=== PATIENT | female | born 1965 | race Caucasian/White ===

== ENCOUNTER 2016-07-26 05:00 | Emergency (ER) | payer OTHER ==
[~2016-07-26] VITALS: Ht 165.1 cm; Wt 65.8 kg
[2016-07-26] MEDS ORDERED: HYDROCODONE/APAP 5/325MG TABLET. PO ONE (06:00)
--- NOTE | 2016-07-26 06:09 | PHYS DOC ---
Past Medical History Past Medical History: Diabetes-Type II Past Surgical History: No Surgical History Alcohol Use: None Drug Use: None Adult General Chief Complaint Chief Complaint: WRIST PAIN HPI HPI 51-year-old female presenting to the emergency department today after falling while trying to pull a table and injuring her right wrist. She has payment sharp severe not radiating and without leaving factors. She denies any numbness weakness or tingling of the hand. She also reports pain in her elbow and shoulder. Review of Systems Review of Systems Constitutional: Denies fever or chills Eyes: Denies change in visual acuity, redness, or eye pain [] HENT: Denies nasal congestion or sore throat [] Respiratory: Denies cough or shortness of breath [] Cardiovascular: No additional information not addressed in HPI GI: Denies abdominal pain, nausea, vomiting, bloody stools or diarrhea [] : Denies dysuria or hematuria Musculoskeletal: positive for wrist pain. Integument: Denies rash or skin lesions [] Neurologic: Denies headache, focal weakness or sensory changes Endocrine: Denies polyuria or polydipsia [] Current Medications Current Medications Current Medications Medications (Trade) Dose Ordered Sig/Yoly Start Time Stop Time Status Last Admin Dose Admin Acetaminophen/ Hydrocodone Bitart (Lortab 5/325) 2 tab 1X ONCE 07/26/16 06:00 07/26/16 06:01 DC 07/26/16 06:21 2 TAB Allergies Allergies Allergies Coded Allergies Type Severity Reaction Last Updated Verified No Known Drug Allergies 07/26/16 No Physical Exam Physical Exam Constitutional: Well developed, well nourished, no acute distress, non-toxic appearance. HENT: Normocephalic, atraumatic, bilateral external ears normal, oropharynx moist, no oral exudates, nose normal. [] Eyes: PERRLA, EOMI, conjunctiva normal, no discharge. Neck: Normal range of motion, no tenderness, supple, no stridor. [] Cardiovascular:Heart rate regular rhythm, no murmur Lungs & Thorax: Bilateral breath sounds clear to auscultation [] Abdomen: Bowel sounds normal, soft, no tenderness, no masses, no pulsatile masses. [] Skin: Warm, dry, no erythema, no rash. [] Back: No tenderness, no CVA tenderness. [] Extremities: the patient's right upper extremity is warm and well perfused with a palpable pulse. Normal motor and sensory function of the hand. There is mild swelling of the wrist with tenderness to palpation of the radial head. two second cap Refill. Otherwise mild pain with passive range of motion of the elbow and shoulder. Other extremities show no evidence of injury. Neurologic: Alert and oriented X 3, normal motor function, normal sensory function, no focal deficits noted. Psychologic: Affect normal, judgement normal, mood normal. [] Current Patient Data Vital Signs Vital Signs Date Time Temp Pulse Resp B/P Pulse Ox O2 Delivery O2 Flow Rate FiO2 07/26/16 06:44 95 12 142/69 97 Room Air 07/26/16 05:11 98.1 98.1 EKG EKG [] Radiology/Procedures Radiology/Procedures [] Course & Med Decision Making Course & Med Decision Making Pertinent Labs and Imaging studies reviewed. (See chart for details) 51-year-old female presented to the emergency department today with right wrist pain after a fall. X-rays were noted to have a nondisplaced distal radius fracture. I discussed case with Dr. Ricardo BARRAGAN. The patient was placed in a sugar tong splint and provided pain medication to help with orthopedic surgery over the next 4-5 days. x-rays of the shoulder and elbow or otherwise unremarkable. Dragon Disclaimer Dragon Disclaimer This electronic medical record was generated, in whole or in part, using a voice recognition dictation system. Departure Departure Impression: Primary Impression: Right radial fracture Disposition: 01 HOME, SELF-CARE Condition: STABLE Referrals: NO PCP (PCP) AZALIA BLAS MD Patient Instructions: Radius Fracture with [facility] Additional Instructions: Thank you for allowing us to participate in your care today. Followup with your primary care physician in 3 days if your symptoms do not improve. If you do not have a primary care provider you can ask for a list of our primary care providers. Return to the emergency department you have any new or concerning findings. This should be evaluated by the primary care physician and any necessary consulting services for continued management within a few days after discharge. Return to emergency room if you have any new or concerning symptoms including but not limited to fever, chills, nausea, vomiting, intractable pain, any new rashes, chest pain, shortness of air, uncontrolled bleeding, difficulty breathing, and/or vision loss. You may have been prescribed medication that can change in your level of thinking and ability to operate machinery. These medications include hydrocodone and Ativan. Also, Benadryl has been known to do this as well. Be sure to check with your pharmacist and ask if the medications you've prescribed can affect your level of consciousness. I recommend not operating heavy machinery or driving while on medication such as these. Scripts Hydrocodone Bit/Acetaminophen (Hydrocodone-Apap 5-325 )1 Each Tablet1 Tab PO PRN Q6HRS PRN PAIN #15 TAB Be careful as this medication may cause you to be drowsy or tired. Do not drive on this medication. Prov:BHARATHI ZHANG MD 07/26/16 BHARATHI ZHANG MD Jul 26, 2016 06:09
[2016-07-26] MEDS ORDERED: HYDR-2666 PO (06:12)
[2016-07-26 06:44] VITALS: BP 142/69
--- NOTE | 2016-07-26 08:30 | RAD ---
Three-view right shoulder study History: Injury and right shoulder pain. Findings: No acute fracture or dislocation or osteolytic process is seen. No AC joint separation is seen. 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 IMPRESSION: No acute fracture.
--- NOTE | 2016-07-26 08:31 | RAD ---
Three-view study of the right wrist History: Injury and pain Findings: There is a nondisplaced impacted transverse fracture of the distal right radial metaphysis. Radiocarpal articulation is maintained. No osteolytic process is seen. IMPRESSION: Post traumatic fracture of the distal right radius.
--- NOTE | 2016-07-26 08:32 | RAD ---
Three-view study of the right elbow Clinical indications: Injury and pain Findings: No elbow joint effusion is seen. No acute fracture or dislocation or osteolytic process is evident. IMPRESSION: No acute fracture.
== END 2016-07-26 06:44 | disposition home or self-care (01) ==
LOC: ER 05:00
DX: S52.501A Unspecified fracture of the lower end of right radius, initial encounter for closed fracture (principal); M25.521 Pain in right elbow; M25.511 Pain in right shoulder; E11.9 Type 2 diabetes mellitus without complications; W19.XXXA Unspecified fall, initial encounter; Y93.89 Activity, other specified; Y92.89 Other specified places as the place of occurrence of the external cause; Y99.8 Other external cause status
CPT/HCPCS: 29125; 73030; 73080; 73110; 99284